=== PATIENT | female | born 1995 | race Caucasian/White ===

== ENCOUNTER → 2018-10-29 | Outpatient (CLI) | payer OTHER | END | disposition home or self-care (01) | LOC: SONOGRAMA 12:05 | DX: N92.1 Excessive and frequent menstruation with irregular cycle (principal) ==

== ENCOUNTER 2024-03-05 11:11 | Emergency (ER) | payer OTHER ==
[~2024-03-05] VITALS: Ht 167.6 cm; Wt 95.3 kg
[2024-03-05] MEDS ORDERED: TETANUS & DIPHTHERIA TOX,ADULT 0.5 ML VIAL IM ONE (12:30)
[2024-03-05] MEDS ORDERED: KETOROLAC TROMETHAMINE 30 MG VIAL IM ONE (12:30)
[2024-03-05] MEDS ORDERED: CEFTRIAXONE SODIUM 2,000 MG VIAL IM ONE (12:30)
[2024-03-05] MEDS ORDERED: CEFTRIAXONE SODIUM 2,000 MG VIAL ONE (12:45)
[2024-03-05] MEDS ORDERED: KETOROLAC TROMETHAMINE 30 MG VIAL ONE (12:45)
[2024-03-05] MEDS ORDERED: TETANUS DIPHTHERIA TOX. ADSOR 5 ML VIAL IM ONE (12:45)
== END 2024-03-05 12:56 | disposition home or self-care (01) ==
LOC: ER 11:12
DX: S99.822A Other specified injuries of left foot, initial encounter (principal); X58.XXXA Exposure to other specified factors, initial encounter; Y93.89 Activity, other specified; Y92.89 Other specified places as the place of occurrence of the external cause; Y99.8 Other external cause status; Z88.6 Allergy status to analgesic agent

== ENCOUNTER 2024-05-14 13:11 | Emergency (ER) | payer OTHER ==
[~2024-05-14] VITALS: Ht 170.2 cm; Wt 99.8 kg
[2024-05-14] MEDS ORDERED: VENLAFAXINE HCL75 M1 PO (14:14)
[2024-05-14] MEDS ORDERED: OXTELLAR XR150 MG PO (14:14)
[2024-05-14] MEDS ORDERED: DEXAMETHASONE SODIUM PHOSPHATE 4 MG/ML VIAL IM STA (15:12)
== END 2024-05-14 15:59 | disposition home or self-care (01) ==
LOC: ER 13:13
DX: U07.1 COVID-19 (principal); J10.1 Influenza due to other identified influenza virus with other respiratory manifestations; Z88.8 Allergy status to other drugs, medicaments and biological substances

== ENCOUNTER 2025-06-12 17:09 | Emergency (ER) | payer OTHER ==
[~2025-06-12] VITALS: Ht 170.2 cm; Wt 97.5 kg
[~2025-06-12 17:09] MED LIST: OXTELLAR XR150 MG PO; VENLAFAXINE HCL75 M1 PO
[2025-06-12] MEDS ORDERED: KETOROLAC TROMETHAMINE 30 MG VIAL IM ONE (18:30)
[2025-06-12] MEDS ORDERED: ORPHENADRINE CITRATE 30 MG/ML AMPUL IM ONE (18:30)
[2025-06-12] MEDS ORDERED: DEXAMETHASONE SODIUM PHOSPHATE 4 MG/ML VIAL IM ONE (18:30)
[2025-06-12] MEDS ORDERED: MEDROLPACK PO (20:43)
[2025-06-12] MEDS ORDERED: NORFLEX100MG PO (20:43)
[2025-06-12] MEDS ORDERED: DICLOFENAC SODI50 MG PO (20:43)
[2025-06-12] MEDS ORDERED: GABAPENTIN 300 MG CAPSULE PO ONE (21:00)
== END 2025-06-12 21:56 ==
LOC: ER 17:10
DX: M62.830 Muscle spasm of back (principal); M54.50 Low back pain, unspecified; Z88.5 Allergy status to narcotic agent